=== PATIENT | male | born 1935 | race Caucasian/White ===

== ENCOUNTER 2016-10-20 11:45 | Inpatient (IN) | payer OTHER ==
[2016-10-20] MEDS ORDERED: SODIUM CHLORIDE 500 ML IV STA (13:14)
[2016-10-20] MEDS ORDERED: ACETAMINOPHEN 325 MG TABLET (FP) PO ONE (13:19)
--- NOTE | 2016-10-20 13:20 | PDOC ---
History of Present Illness - History of Present Illness Initial Comments: 10/20/16 16:08 The patient is a 80 year old male, with a significant past medical history of hypertension, asthma, dementia, and arthritis, who presents to the emergency department BIB son-in-law with lower extremity edema and pain for 5 days and vomiting yesterday. He reports the pain in his lower extremities is mild but constant. He states his lower extremities were normal size a week ago, but reports they have increased in size significantly. He states he has been very thirsty and reports drinking large amounts of water. He also reports increased urinary output but denies dysuria. The patients family reports a couple recent episodes of urinary incontinence which is new. The patient states he uses his nebulizer treatments regularly for his asthma. He states he feels short of breath and weak with walking short distances, which he attributes to old age. He endorses orthopnea. He denies chest pain, headache and dizziness. He denies fever, chills, nausea, diarrhea and constipation. He denies dysuria and hematuria. Allergies: NKDA PCP - at [facility] <Fabi Loera - Last Filed: 10/20/16 17:02> <Fco Parmar - Last Filed: 10/21/16 08:19> - General Chief Complaint: Edema Stated Complaint: SWOLLEN LEGS Time Seen by Provider: 10/20/16 12:43 Past History <Fabi Loera - Last Filed: 10/20/16 17:02> - Past Medical History Anemia: Yes Asthma: Yes Dementia: Yes HTN: Yes Hypercholesterolemia: Yes Other medical history: prostate - Psycho/Social/Smoking Cessation Hx Suicidal Ideation: No Smoking History: Never smoked <Fco Parmar - Last Filed: 10/21/16 08:19> - Past Medical History Allergies/Adverse Reactions: Allergies Allergy/AdvReac Type Severity Reaction Status Date / Time No Known Allergies Allergy Verified 10/20/16 11:57 Home Medications: Ambulatory Orders NK [No Known Home Medication] 10/20/16 Review of Systems - Review of Systems Able to Perform ROS?: Yes Comments:: 10/20/16 16:08 CONSTITUTIONAL: No reported: Fever, Chills, Diaphoresis, Generalized Weakness, Malaise, Loss of Appetite HEENT: No reported: Rhinorrhea, Nasal Congestion, Throat Pain, Throat Swelling, Difficulty Swallowing, Mouth Swelling, Ear Pain, Eye Pain, Visual Changes CARDIOVASCULAR: No reported: Chest Pain, Syncope, Palpitations, Irregular Heart Rate, Lightheadedness, Peripheral Edema RESPIRATORY: (+) SOB with Exertion,No reported: Cough, Shortness of Breath, Orthopnea, Wheezing, Stridor, Hemoptysis GASTROINTESTINAL: (+) Vomiting,No reported: Abdominal pain, Abdominal Distension, Nausea, Diarrhea, Constipation, Melena, Hematochezia GENITOURINARY: No reported: Dysuria, Frequency, Urgency, Hesitancy, Flank Pain, Genital Pain MUSCULOSKELETAL: (+) lower extremity edema and pain. No reported: Back pain, Neck Pain SKIN: No reported: Rash, Itching, Pallor HEMEATOLOGIC/IMMUNOLOGIC: No reported: Easy Bleeding, Easy Bruising, Lymphadenopathy, Frequent infections ENDOCRINE: No reported: Unexplained Weight Gain, Unexplained Weight Loss, Heat Intolerance , Cold Intolerance NEUROLOGIC: No reported: Headache, Focal Weakness, Paresthesias, Vertigo, Lightheadedness, Unsteady Gait, Seizure, Mental Status Changes, Incontinence PSYCHIATRIC: No reported: Anxiety, Depression <Fabi Loera - Last Filed: 10/20/16 17:02> *Physical Exam - Vital Signs Last Vital Signs Temp Pulse Resp BP Pulse Ox 100.7 F H 133 H 20 135/66 98 10/20/16 11:57 10/20/16 11:57 10/20/16 11:57 10/20/16 11:57 10/20/16 11:57 - Physical Exam Comments: 10/20/16 16:09 GENERAL: The patient is awake, alert, and fully oriented, Nontoxic - in no acute distress. HEAD: Normocephalic, atraumatic. EYES: extraocular movements intact, sclera anicteric, conjunctiva clear. ENT: Normal voice, Moist mucous membranes. NECK: Normal range of motion, supple LUNGS: (+) Bilateral wheezing. Breath sounds equal, No wheezes, no rhonchi, no rales. HEART: (+) tachycardic rate and normal rhythm, without murmur, rub or gallop. ABDOMEN: Soft, nontender, normoactive bowel sounds. No guarding, no rebound.No CVA tenderness EXTREMITIES: (+) bilateral lower extremity pitting edema up to thighs. Normal range of motion, No clubbing or cyanosis. No cords, erythema, or tenderness. NEUROLOGICAL: No facial assymetry, Normal speech, PSYCH: Normal mood, normal affect. SKIN: Warm, Dry, normal turgor, <ChristinacadenceranjanFabi - Last Filed: 10/20/16 17:02> - Vital Signs Last Vital Signs Temp Pulse Resp BP Pulse Ox 100.7 F H 133 H 20 135/66 98 10/20/16 11:57 10/20/16 11:57 10/20/16 11:57 10/20/16 11:57 10/20/16 11:57 <Fco Parmar - Last Filed: 10/21/16 08:19> Heart Score/ECG Review - ECG Impressions Comment:: 10/20/16 14:19 Twelve-lead EKG was performed and reviewed by me. irregularly irregular rate of [address] changes suggestive of acute ischemia no old ekg for comparison <Fco Parmar - Last Filed: 10/21/16 08:19> ED Treatment Course - LABORATORY CBC & Chemistry Diagram: 10/20/16 13:17 10/20/16 13:17 - ADDITIONAL ORDERS Additional order review: Laboratory Results 10/20/16 10/20/16 10/20/16 15:15 14:48 13:17 VBG pH POC VBG pCO2 POC VBG pO2 Mixed VBG HCO3 Sodium Potassium Chloride Carbon Dioxide Anion Gap BUN Creatinine Creat Clearance w eGFR Random Glucose Calcium Total Bilirubin AST ALT Alkaline Phosphatase Creatine Kinase Troponin I B-Natriuretic Peptide Total Protein Albumin Urine Color Yellow Urine Appearance Clear Urine pH 6.0 Urine Protein Negative Urine Glucose (UA) Negative Urine Ketones Negative Urine Blood 1+ H Urine Nitrite Negative Urine Bilirubin Negative Urine Urobilinogen 4.0 e.u/dl Ur Leukocyte Esterase Negative Urine RBC 17 Urine WBC 2 Stool Occult Blood Negative Crossmatch See Detail 10/20/16 10/20/16 13:17 13:16 VBG pH 7.43 H POC VBG pCO2 37.3 L POC VBG pO2 41.4 Mixed VBG HCO3 24.3 Sodium 138 Potassium 4.0 Chloride 103 Carbon Dioxide 24 Anion Gap 11 BUN 24 H Creatinine 0.9 Creat Clearance w eGFR > 60 Random Glucose 113 H Calcium 8.5 Total Bilirubin 1.1 H AST 15 ALT 14 Alkaline Phosphatase 90 Creatine Kinase 49 Troponin I 0.02 B-Natriuretic Peptide 4708.53 H Total Protein 6.6 Albumin 3.4 Urine Color Urine Appearance Urine pH Urine Protein Urine Glucose (UA) Urine Ketones Urine Blood Urine Nitrite Urine Bilirubin Urine Urobilinogen Ur Leukocyte Esterase Urine RBC Urine WBC Stool Occult Blood Crossmatch 10/20/16 13:17 RBC 1.82 L MCV 99.8 H MCHC 33.8 RDW 14.5 MPV 13.5 H Neutrophils % 74.4 Lymphocytes % 14.1 Monocytes % 10.2 Eosinophils % 0.0 Basophils % 1.3 - RADIOLOGY Radiograph Interpretation: 10/20/16 16:17 CXR was read by Dr. Anthony at 14:56 Impression: No evidence of pneumonia, CHF, pneumothorax, or pleural effusion. - Medications Given in the ED: ED Medications Discontinued Medications Generic Name Dose Route Start Last Admin Trade Name Freq PRN Reason Stop Dose Admin Acetaminophen 650 mg 10/20/16 13:19 10/20/16 13:52 Tylenol - PO 10/20/16 13:20 650 mg ONCE ONE Administration Sodium Chloride 500 mls @ 500 mls/hr 10/20/16 13:14 10/20/16 13:52 Normal Saline - IV 10/20/16 14:13 500 mls/hr ASDIR STA Administration <Fabi Loera - Last Filed: 10/20/16 17:02> - LABORATORY CBC & Chemistry Diagram: 10/20/16 13:17 10/20/16 13:17 - RADIOLOGY Radiology Studies Ordered: Category Date Time Status CHEST X-RAY PORTABLE* [RAD] Stat Radiology 10/20/16 13:14 Ordered <Fco Parmar - Last Filed: 10/21/16 08:19> Medical Decision Making - Medical Decision Making 10/20/16 16:15 Dr. Lopez, cardiology, was paged via phone answering service at 15:55 requesting a call back for doctor to doctor consult. Dr. Turner was called at the office at 16:00 requesting a call back for service admission of this patient. Dr. Lopez was paged overhead requesting a call to [phone]. Dr. Turner was paged a second time at 16:20 requesting a call back for service admission of this patient. Dr. Turner was paged a third time, first time through the phone answering service, at 16:55 requesting a call back for service admission of this patient. I have been advised Dr. Ramon is on-call at this time. Dr. Lopez is in the ED and the patient's case was discussed at 16:55 <Fabi Loera - Last Filed: 10/20/16 17:02> - Medical Decision Making 10/20/16 13:17 80y M presenting with generalized malaise, fatigue, b/l LE edema for 3-4 days, pt did have some vomiting yesterday with abd pain but that has resolved. on exam the pt noted for b/l pitting edema to knees, noted tachy and slightly febrile at triage, b/l wheezing in lungs. differential is broad and includes renal failure, liver failure, chf, pna will give tylenol, gentle fluids A portion of this note was documented by scribe services under my direction. I have reviewed the details of the note, within reason, and agree with the documentation with the following case summary and management plan written by me 10/20/16 14:20 new afib noted on ekg 10/20/16 15:09 pts labs noted for anemia to 6.1, suspect this is the cause of his malaise/ weakness. cxr clear wlil defer a/c for now - awaiting stool guaiac to r/o GIB pts HR improved to 112 from arrival cristóbal llikely need admission 10/20/16 15:55 guaiac negative labs noted pancytopenic -? malignancy awaiting trasnfusion will d/w cardiology regarding rate control vs. transfusion initially 10/20/16 17:[address] lopez agree with deferring a/c due to pancytopenia also agree with holding rate control until pt is transfused in case he is compensating for his anemia pts bp normal here, hr currently reasonable at 115 awaiting call back from dr. mary/yenny for admission will admit to tele CRITICAL CARE DOCUMENTATION: I spent ~35 minutes of Critical Care time, excluding separately billable procedures, involving high complexity decision making to assess, manipulate and support vital system function(s) to treat single or multiple vital organ system failure and/or to prevent further life threatening deterioration of the patient' s condition. 10/20/16 17:27 10/20/16 17:[address] [facility] Case discussed in detail with admitting physician including history, physical exam and ancillary studies. Admitting physician has assumed care for the patient, will follow all pending diagnostics and will complete the evaluation and treatment. <Fco Parmar - Last Filed: 10/21/16 08:19> *DC/Admit/Observation/Transfer - Attestations Scribe Attestion: 10/20/16 16:09 Documentation prepared by Fabi Loera, acting as medical stenographer for Fco Parmar MD, <Fabi Loera - Last Filed: 10/20/16 17:02> - Discharge Dispostion Admit: Yes <Fco Parmar - Last Filed: 10/21/16 08:19> Diagnosis at time of Disposition: Pancytopenia, Leg edema Atrial fibrillation Qualifiers: Atrial fibrillation type: unspecified Qualified Code(s): I48.91 - Unspecified atrial fibrillation - Discharge Dispostion Condition at time of disposition: Guarded
[2016-10-20 13:59] LABS: BASOPHIL 1.3 % (0-2.0); MCH 33.7 pg (25.7-33.7); MCHC 33.8 g/dl (32.0-35.9); MEAN CELL VOLUME 99.8 fl (80-96); MEAN PLT VOLUME 13.5 fl (7.5-11.1); NEUTROPHILS 74.4 % (42.8-82.8); RDW 14.5 % (11.9-15.9); WHITE BLOOD COUNT 3.4 K/mm3 (4.0-10.0)
[2016-10-20 14:03] LABS: VENOUS PH 7.43 (7.32-7.42)
[2016-10-20] MEDS ORDERED: ACETAMINOPHEN 325 MG TABLET (FP) ONE (14:03)
[2016-10-20 14:04] LABS: VENOUS BLOOD GAS HCO3 24.3 meq/L (19-25)
[2016-10-20 14:25] LABS: ALBUMIN 3.4 g/dl (3.4-5.0); ALK PHOS 90 U/L (45-117); ANION GAP 11 (8-16); BILIRUBIN,TOTAL 1.1 mg/dL (0.2-1.0); CALCIUM 8.5 mg/dL (8.5-10.1); CO2 24 mmol/L (21-32); CREATININE 0.9 mg/dL (0.7-1.3); GLUCOSE,RANDOM 113 mg/dL (74-106); SGOT/AST 15 U/L (15-37); SGPT/ALT 14 U/L (12-78); TOT PROT 6.6 g/dl (6.4-8.2)
[2016-10-20 14:27] LABS: TROPONIN I 0.02 ng/ml (0.00-0.05)
[2016-10-20 15:06] LABS: URINE APPEARANCE CLEAR; URINE BILIRUBIN NEGATIVE (NEGATIVE); URINE COLOR YELLOW; URINE GLUCOSE (UA) NEGATIVE (NEGATIVE); URINE KETONE NEGATIVE (NEGATIVE); URINE LEUK ESTERASE NEGATIVE (NEGATIVE); URINE NITRITE NEGATIVE (NEGATIVE); URINE PROTEIN NEGATIVE (NEGATIVE); URINE UROBILINOGEN 4.0 E.U/dl E.U./dl (0.2-1.0)
[2016-10-20 15:11] LABS: URINE BLOOD 1+ (NEGATIVE)
[2016-10-20 15:13] LABS: URINE RBC 17 /hpf (0-3); URINE WBC 2 /hpf (3-5)
[2016-10-20 15:16] LABS: PLATELET COUNT 32 K/MM3 (134-434)
[2016-10-20 15:17] LABS: ACANTHOCYTES 1+; FRAGMENTED CELL 1+; PLATELET COMMENT2 FEW LARGE PLTS; PLATELET ESTIMATE MARKEDLY DECREASED (NORMAL); TEAR DROP CELLS 1+
[2016-10-20] MEDS: dilTIAZem HCL 50 MG/10 ML - 10 ML VIAL IVPUSH ONE ×2 (16:13→17:06)
[2016-10-20 19:02] LABS: INR 1.68 (0.82-1.09); PROTHROMBIN TIME (PATIENT) 18.7 SEC (9.98-11.88)
[2016-10-21 00:50] VITALS: BMI 26.4
[2016-10-21] MEDS ORDERED: ONDANSETRON 4 MG/2 ML VIAL IVPB ONE (01:50)
--- NOTE | 2016-10-21 01:50 | PDOC ---
*Physical Exam - Vital Signs Last Vital Signs Temp Pulse Resp BP Pulse Ox 98.6 F 124 H 20 142/98 100 10/21/16 00:28 10/21/16 00:28 10/21/16 00:28 10/21/16 00:28 10/21/16 00:28 - Physical Exam Comments: 10/21/16 01:49 called to bedside. pt vomiting after eating a turkey sandwich. no abd pain. will administer zofran. will cont to observe. ED Treatment Course - LABORATORY CBC & Chemistry Diagram: 10/20/16 13:17 10/20/16 13:17 - ADDITIONAL ORDERS Additional order review: Laboratory Results 10/20/16 10/20/16 10/20/16 16:00 15:15 14:48 INR VBG pH POC VBG pCO2 POC VBG pO2 Mixed VBG HCO3 Sodium Potassium Chloride Carbon Dioxide Anion Gap BUN Creatinine Creat Clearance w eGFR Random Glucose Lactic Acid Calcium Total Bilirubin AST ALT Alkaline Phosphatase Creatine Kinase Troponin I B-Natriuretic Peptide Total Protein Albumin TSH Urine Color Yellow Urine Appearance Clear Urine pH 6.0 Ur Specific [place] 1.015 Urine Protein Negative Urine Glucose (UA) Negative Urine Ketones Negative Urine Blood 1+ H Urine Nitrite Negative Urine Bilirubin Negative Urine Urobilinogen 4.0 e.u/dl Ur Leukocyte Esterase Negative Urine RBC 17 Urine WBC 2 Stool Occult Blood Negative Blood Type A POSITIVE Antibody Screen Crossmatch 10/20/16 10/20/16 10/20/16 13:20 13:17 13:17 INR VBG pH POC VBG pCO2 POC VBG pO2 Mixed VBG HCO3 Sodium Potassium Chloride Carbon Dioxide Anion Gap BUN Creatinine Creat Clearance w eGFR Random Glucose Lactic Acid 2.2 H* Calcium Total Bilirubin AST ALT Alkaline Phosphatase Creatine Kinase Troponin I B-Natriuretic Peptide Total Protein Albumin TSH 0.54 Urine Color Urine Appearance Urine pH Ur Specific [place] Urine Protein Urine Glucose (UA) Urine Ketones Urine Blood Urine Nitrite Urine Bilirubin Urine Urobilinogen Ur Leukocyte Esterase Urine RBC Urine WBC Stool Occult Blood Blood Type A POSITIVE Antibody Screen Negative Crossmatch See Detail 10/20/16 10/20/16 10/20/16 13:17 13:17 13:16 INR 1.68 H VBG pH 7.43 H POC VBG pCO2 37.3 L POC VBG pO2 41.4 Mixed VBG HCO3 24.3 Sodium 138 Potassium 4.0 Chloride 103 Carbon Dioxide 24 Anion Gap 11 BUN 24 H Creatinine 0.9 Creat Clearance w eGFR > 60 Random Glucose 113 H Lactic Acid Calcium 8.5 Total Bilirubin 1.1 H AST 15 ALT 14 Alkaline Phosphatase 90 Creatine Kinase 49 Troponin I 0.02 B-Natriuretic Peptide 4708.53 H Total Protein 6.6 Albumin 3.4 TSH Urine Color Urine Appearance Urine pH Ur Specific [place] Urine Protein Urine Glucose (UA) Urine Ketones Urine Blood Urine Nitrite Urine Bilirubin Urine Urobilinogen Ur Leukocyte Esterase Urine RBC Urine WBC Stool Occult Blood Blood Type Antibody Screen Crossmatch 10/20/16 13:17 RBC 1.82 L MCV 99.8 H MCHC 33.8 RDW 14.5 MPV 13.5 H Neutrophils % 74.4 Lymphocytes % 14.1 Monocytes % 10.2 Eosinophils % 0.0 Basophils % 1.3 - Medications Given in the ED: ED Medications Discontinued Medications Generic Name Dose Route Start Last Admin Trade Name Freq PRN Reason Stop Dose Admin Acetaminophen 650 mg 10/20/16 13:19 10/20/16 13:52 Tylenol - PO 10/20/16 13:20 650 mg ONCE ONE Administration Diltiazem HCl 10 mg 10/20/16 15:55 10/20/16 17:06 Cardizem Injection - IVPUSH 10/20/16 15:56 Not Given ONCE ONE Sodium Chloride 500 mls @ 500 mls/hr 10/20/16 13:14 10/20/16 13:52 Normal Saline - IV 10/20/16 14:13 500 mls/hr ASDIR STA Administration *DC/Admit/Observation/Transfer Diagnosis at time of Disposition: Pancytopenia, Leg edema Atrial fibrillation Qualifiers: Atrial fibrillation type: unspecified Qualified Code(s): I48.91 - Unspecified atrial fibrillation - Discharge Dispostion Condition at time of disposition: Guarded
[2016-10-21] MEDS ORDERED: ONDANSETRON 4 MG/2 ML VIAL ONE (01:56)
[2016-10-21] MEDS ORDERED: ALBUTEROL SO4 2.5/IPRATROPIUM 0.5 INH SOL 3 ML VIAL.NEB. NEB PRN (01:58)
[2016-10-21] MEDS ORDERED: ONDANSETRON 4 MG/2 ML VIAL IVPB PRN (03:43)
[2016-10-21] MEDS ORDERED: PANTOPRAZOLE SODIUM 40 MG/100 ML PRE-DOCKED IVPB ONE (03:45)
[2016-10-21] MEDS ORDERED: PANTOPRAZOLE SODIUM 40 MG/100 ML PRE-DOCKED IVPB SCH (03:45)
[2016-10-21] MEDS: ACETAMINOPHEN 325 MG TABLET (FP) PO PRN ×2 (04:15→22:31)
[2016-10-21] MEDS: morphine CARPU-JECT 2 MG/1 ML DISP.SYRIN IVPUSH PRN ×3 (04:15→23:22)
[2016-10-21 04:56] LABS: TROPONIN I < 0.02 ng/ml (0.00-0.05)
[2016-10-21] MEDS ORDERED: morphine CARPU-JECT 2 MG/1 ML DISP.SYRIN IVPUSH ONE (05:30)
[2016-10-21] MEDS ORDERED: LEVOFLOXACIN 500 MG IVPB 100 ML IVPB SCH (06:45)
[2016-10-21 08:02] LABS: THYROID STIMULATING HORMONE 0.78 uIU/ml (0.358-3.74)
[2016-10-21 09:15] LABS: ALBUMIN 3.3 g/dl (3.4-5.0); ANION GAP 13 (8-16); CALCIUM 8.5 mg/dL (8.5-10.1); CO2 22 mmol/L (21-32); GLUCOSE,RANDOM 158 mg/dL (74-106)
[2016-10-21 09:17] LABS: CREATININE 0.8 mg/dL (0.7-1.3); SGOT/AST 14 U/L (15-37); SGPT/ALT 12 U/L (12-78)
[2016-10-21 09:20] LABS: ALK PHOS 88 U/L (45-117); BILIRUBIN,TOTAL 2.9 mg/dL (0.2-1.0); TOT PROT 6.5 g/dl (6.4-8.2)
[2016-10-21 09:35] LABS: MCH 32.6 pg (25.7-33.7); MCHC 33.5 g/dl (32.0-35.9); MEAN CELL VOLUME 97.4 fl (80-96); MEAN PLT VOLUME 11.2 fl (7.5-11.1); RDW 17.1 % (11.9-15.9); WHITE BLOOD COUNT 7.3 K/mm3 (4.0-10.0)
[2016-10-21] MEDS: HEPARIN NA (PORCINE) 5,000 UNITS/ML 1ML VIAL SQ SCH ×2 (09:35→23:09)
[2016-10-21] MEDS: PANTOPRAZOLE 40 MG TABLET (FP) PO SCH (09:35)
--- NOTE | 2016-10-21 09:44 | EKG ---
Test Reason : Blood Pressure : / mmHG Vent. Rate : 112 BPM Atrial Rate : 138 BPM P-R Int : 000 ms QRS Dur : 126 ms QT Int : 350 ms P-R-T Axes : 000 -04 005 degrees QTc Int : 477 ms ATRIAL FIBRILLATION WITH RAPID VENTRICULAR RESPONSE RIGHT BUNDLE BRANCH BLOCK ABNORMAL ECG NO PREVIOUS ECGS AVAILABLE Confirmed by ROSA LYNCH MD ([id number]) on 10/21/2016 9:44:11 AM Referred By: Confirmed By:ROSA LYNCH MD
[2016-10-21 10:04] LABS: ALBUMIN 3.3 g/dl (3.4-5.0); ANION GAP 12 (8-16); BILIRUBIN,TOTAL 2.5 mg/dL (0.2-1.0); CALCIUM 8.4 mg/dL (8.5-10.1); CO2 24 mmol/L (21-32); CREATININE 0.9 mg/dL (0.7-1.3); GLUCOSE,RANDOM 190 mg/dL (74-106); SGOT/AST 18 U/L (15-37); SGPT/ALT 12 U/L (12-78); TOT PROT 6.8 g/dl (6.4-8.2)
[2016-10-21 10:05] LABS: ALK PHOS 91 U/L (45-117)
[2016-10-21 11:55] LABS: PLATELET COUNT 44 K/MM3 (134-434)
[2016-10-21 11:57] LABS: PLATELET COMMENT2 FEW GIANT PLTS; PLATELET ESTIMATE DECREASED (NORMAL)
--- NOTE | 2016-10-21 12:24 | CON.CARD ---
Cardiology Consult (text) - Consultation Consultation Note: cc: generalized weakness hpi: 80 m hx htn, asthma, dementia, here with generalized weakness. No cp, sob , palps, dizzy,loc, pnd, orthopnea. Mild le edema bl. No known hx hrt dz. Found to have pancytopenia, fevers. Also with new afib so cardio eval requested. pmh: per hpi psh: nc social: no tob fam: no premature cad, scd ros: per hpi; no cough, curiel, vision changes, gib,hematuria, dysuria, n/v/d meds: Home Medications Medication Instructions Recorded NK [No Known Home Medication] 10/20/16 pe: Vital Signs Period Temp Pulse Resp BP Sys/Ortega Pulse Ox Last 24 Hr 98.3 F-101.9 F 112-130 18-24 118-164/73-100 96-100 nad no jvd tachy, irreg, s1s2 no mrg cta bl nl eff awake alert answers simple questions appropriately no jaundice diaphoresis trace le edema bl, no c/c abd nt nd pos bs pos dp pt no carotid bruits Laboratory Last Values WBC 7.3 K/mm3 (4.0-10.0) D 10/21/16 09:10 RBC 2.74 M/mm3 (4.00-5.60) L D 10/21/16 09:10 Hgb 8.9 GM/dL (11.7-16.9) L D 10/21/16 09:10 Hct 26.6 % (35.4-49) L D 10/21/16 09:10 MCV 97.4 fl (80-96) H 10/21/16 09:10 MCHC 33.5 g/dl (32.0-35.9) 10/21/16 09:10 RDW 17.1 % (11.9-15.9) H D 10/21/16 09:10 Plt Count 44 K/MM3 (134-434) L D 10/21/16 09:10 MPV 11.2 fl (7.5-11.1) H D 10/21/16 09:10 Neutrophils % 73.0 % (42.8-82.8) 10/21/16 09:10 Lymphocytes % 18.0 % (8-40) D 10/21/16 09:10 Monocytes % 7.0 % (3.8-10.2) 10/21/16 09:10 Eosinophils % 0.0 % (0-4.5) 10/20/16 13:17 Basophils % 2.0 % (0-2.0) 10/21/16 09:10 Platelet Estimate Decreased (NORMAL) 10/21/16 09:10 Platelet Comment Few large plts 10/21/16 09:10 Platelet Comment Few giant plts 10/21/16 09:10 Tear Drop Cells 1+ 10/20/16 13:17 Acanthocytes (Spur) 1+ 10/20/16 13:17 Fragmented RBCs 1+ 10/20/16 13:17 Morphology Comment Slide scanned 10/20/16 13:17 INR 1.68 (0.82-1.09) H 10/20/16 13:17 VBG pH 7.43 (7.32-7.42) H 10/20/16 13:16 POC VBG pCO2 37.3 mmHg (38-52) L 10/20/16 13:16 POC VBG pO2 41.4 mmHg (28-48) 10/20/16 13:16 Mixed VBG HCO3 24.3 meq/L (19-25) 10/20/16 13:16 Sodium 140 mmol/L (136-145) 10/21/16 09:10 Potassium 3.8 mmol/L (3.5-5.1) 10/21/16 09:10 Chloride 104 mmol/L (98-107) 10/21/16 09:10 Carbon Dioxide 24 mmol/L (21-32) 10/21/16 09:10 Anion Gap 12 (8-16) 10/21/16 09:10 BUN 26 mg/dL (7-18) H 10/21/16 09:10 Creatinine 0.9 mg/dL (0.7-1.3) 10/21/16 09:10 Creat Clearance w eGFR > 60 (>60) 10/21/16 09:10 Random Glucose 190 mg/dL (74-106) H D 10/21/16 09:10 Hemoglobin A1c % 5.7 % (4.8-6.0) 10/21/16 05:35 Lactic Acid 1.3 mmol/L (0.4-2.0) 10/20/16 18:44 Calcium 8.4 mg/dL (8.5-10.1) L 10/21/16 09:10 Total Bilirubin 2.5 mg/dL (0.2-1.0) H 10/21/16 09:10 AST 18 U/L (15-37) D 10/21/16 09:10 ALT 12 U/L (12-78) 10/21/16 09:10 Alkaline Phosphatase 91 U/L (45-117) 10/21/16 09:10 Creatine Kinase 43 IU/L (39-308) 10/21/16 04:20 Troponin I < 0.02 ng/ml (0.00-0.05) 10/21/16 04:20 B-Natriuretic Peptide 4708.53 pg/ml (5-450) H 10/20/16 13:17 Total Protein 6.8 g/dl (6.4-8.2) 10/21/16 09:10 Albumin 3.3 g/dl (3.4-5.0) L 10/21/16 09:10 TSH 0.78 uIU/ml (0.358-3.74) D 10/21/16 05:35 Urine Color Yellow 10/20/16 14:48 Urine Appearance Clear 10/20/16 14:48 Urine pH 6.0 (5.0-8.0) 10/20/16 14:48 Ur Specific [place] 1.015 (1.005-1.025) 10/20/16 14:48 Urine Protein Negative (NEGATIVE) 10/20/16 14:48 Urine Glucose (UA) Negative (NEGATIVE) 10/20/16 14:48 Urine Ketones Negative (NEGATIVE) 10/20/16 14:48 Urine Blood 1+ (NEGATIVE) H 10/20/16 14:48 Urine Nitrite Negative (NEGATIVE) 10/20/16 14:48 Urine Bilirubin Negative (NEGATIVE) 10/20/16 14:48 Urine Urobilinogen 4.0 e.u/dl E.U./dl (0.2-1.0) 10/20/16 14:48 Ur Leukocyte Esterase Negative (NEGATIVE) 10/20/16 14:48 Urine RBC 17 /hpf (0-3) 10/20/16 14:48 Urine WBC 2 /hpf (3-5) 10/20/16 14:48 Stool Occult Blood Negative (NEGATIVE) 10/20/16 15:15 Blood Type A POSITIVE 10/20/16 16:00 Antibody Screen Negative 10/20/16 13:17 Crossmatch See Detail 10/20/16 13:17 ecg 10/20/16: afib, 112, nl qtc, no ischemic changes cxr: clear lungs tele: afib 120s a/p: 80 m hx htn, asthma, dementia, here with generalized weakness. new onset afib: -rvr at times so will add toprol 50 bid to start, monitor on tele -tsh wnl -echo pending -no signs acs -chadsvasc score warrants ac but currently with severe anemia and thrombocytopenia so will not start at this time. Will have to determine [facility] candidacy for ac based on clinical course, functional status. htn: -elevated, will add toprol as above weakness, anemia: -has fevers, pancytopenia, likely cause of acute sxs -plans per pmd, heme
[2016-10-21] MEDS: METOPROLOL SUCCINATE 50 MG TAB.SR.24H (FP) PO SCH ×2 (13:47→22:35)
--- NOTE | 2016-10-21 15:30 | CONSULT ---
Consult - text type - Consultation Consultation Note: The patient is a 80 year old male, with a significant past medical history of hypertension, asthma, dementia, and arthritis, who presents with lower extremity edema and pain for 5 days and vomiting yesterday. He reports the pain in his lower extremities is mild but constant. He also reports increased urinary output but denies dysuria. The patients family reports a couple recent episodes of urinary incontinence which is new. He states he feels short of breath and weak with walking short distances, which he attributes to old age. He denies chest pain, headache and dizziness. He denies fever, chills, nausea, diarrhea and constipation. He denies dysuria and hematuria. Allergies: NKDA PCP - at [facility] - Past Medical History Anemia: Yes Asthma: Yes Dementia: Yes HTN: Yes Hypercholesterolemia: Yes Other medical history: prostate - Psycho/Social/Smoking Cessation Hx Smoking History: Never smoked Allergies/Adverse Reactions: Allergies Allergy/AdvReac Type Severity Reaction Status Date / Time No Known Allergies Allergy Verified 10/20/16 11:57 Home Medications: Ambulatory Orders NK [No Known Home Medication] 10/20/16 Current Medications Generic Name Dose Route Start Last Admin Trade Name Freq PRN Reason Stop Dose Admin Acetaminophen 650 mg 10/21/16 05:33 10/21/16 04:15 Tylenol - PO 650 mg Q6H PRN Administration FEVER OR PAIN Albuterol/Ipratropium 1 amp 10/21/16 01:58 Duoneb - NEB Q6H PRN SHORTNESS OF BREATH Heparin Sodium (Porcine) 5,000 unit 10/21/16 10:00 10/21/16 09:35 Heparin - SQ 5,000 unit BID KVNG Administration Levofloxacin 100 mls @ 100 mls/hr 10/21/16 06:45 10/21/16 06:57 Levaquin 500 Mg Premixed Ivpb - IVPB 100 mls/hr DAILY KVNG Administration Metoprolol Succinate 50 mg 10/21/16 12:30 10/21/16 13:47 Toprol Xl - PO 50 mg BID KVNG Administration Morphine Sulfate 2 mg 10/21/16 03:43 10/21/16 13:47 Morphine Injection - IVPUSH 2 mg Q6H PRN Administration PAIN Ondansetron HCl 4 mg 10/21/16 03:43 Zofran Injection IVPB Q6H PRN NAUSEA AND/OR VOMITING Pantoprazole Sodium 40 mg 10/21/16 10:00 10/21/16 09:35 Protonix - PO 40 mg DAILY KVNG Administration Last Vital Signs Temp Pulse Resp BP Pulse Ox 97.4 F L 86 20 121/56 99 10/21/16 14:56 10/21/16 14:56 10/21/16 14:56 10/21/16 14:56 10/21/16 09:00 GENERAL: The patient is awake, alert, and fully oriented, Nontoxic - in no acute distress. HEAD: Normocephalic, atraumatic. NECK: Normal range of motion, supple LUNGS: (+) Bilateral wheezing. Breath sounds equal, No wheezes, no rhonchi, no rales. HEART: (+) tachycardic rate and normal rhythm, without murmur, rub or gallop. ABDOMEN: Soft, nontender, normoactive bowel sounds. No guarding, no rebound.No CVA tenderness EXTREMITIES: (+) bilateral lower extremity pitting edema up to thighs. Normal range of motion, No clubbing or cyanosis. No cords, erythema, or tenderness. NEUROLOGICAL: No facial assymetry, Normal speech, Abnormal Lab Results 10/20/16 10/20/16 10/20/16 13:17 13:17 13:20 RBC Hgb Hct MCV RDW Plt Count MPV INR 1.68 H BUN Random Glucose Lactic Acid 2.2 H* Calcium Total Bilirubin AST Albumin Urine Blood Crossmatch See Detail 10/20/16 10/21/16 10/21/16 14:48 05:35 09:10 RBC 2.74 L D Hgb 8.9 L D Hct 26.6 L D MCV 97.4 H RDW 17.1 H D Plt Count 44 L D MPV 11.2 H D INR BUN 24 H Random Glucose 158 H D Lactic Acid Calcium Total Bilirubin 2.9 H D AST 14 L Albumin 3.3 L Urine Blood 1+ H Crossmatch 10/21/16 09:10 RBC Hgb Hct MCV RDW Plt Count MPV INR BUN 26 H Random Glucose 190 H D Lactic Acid Calcium 8.4 L Total Bilirubin 2.5 H AST Albumin 3.3 L Urine Blood Crossmatch A/P 80 y/o patient with htN, DEMENTIA, ARTHRITIS, Comes in with leg pains, worsening weakness, exertional dyspnea. Aslo with new onset afib. Pancytopenia: macrocytic anemia, thrombocytopenia, nl differentialof WBC Check B12/folate/fT4 TSH --nl check U/S to r/o liver disease chek protein studies check flowcytometry macrocytic anemia--r/o B12/folate deficiency/liver disease/MDS check flow r/o hemolysis f/u cultures --r/o urinary infection check PT/PTT/fibrinogen
--- NOTE | 2016-10-21 16:39 | HP ---
Admitting History and Physical - Admission History of Present Illness: The patient is a 80 year old male, with a significant past medical history of hypertension, asthma, dementia, and arthritis, who presents with lower extremity edema and pain for 5 days and vomiting yesterday. He reports the pain in his lower extremities is mild but constant. He also reports increased urinary output but denies dysuria. The patients family reports a couple recent episodes of urinary incontinence which is new. He states he feels short of breath and weak with walking short distances, which he attributes to old age. He denies chest pain, headache and dizziness. He denies fever, chills, nausea, diarrhea and constipation. He denies dysuria and hematuria. 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 Cardiovascular: Yes: HTN Pulmonary: Yes: Asthma Musculoskeletal: Yes: Osteoarthritis - Smoking History Smoking history: Never smoked - Alcohol/Substance Use Hx Alcohol Use: No Home Medications - Allergies Allergies/Adverse Reactions: Allergies Allergy/AdvReac Type Severity Reaction Status Date / Time No Known Allergies Allergy Verified 10/20/16 11:57 - Home Medications Home Medications: Ambulatory Orders NK [No Known Home Medication] 10/20/16 Family Disease History - Family Disease History Family History: Unremarkable Review of Systems Unable to obtain ROS, reason: Dementia Physical Examination Vital Signs: Vital Signs Temperature 97.4 F L 10/21/16 14:56 Pulse Rate 86 10/21/16 14:56 Respiratory Rate 20 10/21/16 14:56 Blood Pressure 121/56 10/21/16 14:56 O2 Sat by Pulse Oximetry (%) 99 10/21/16 09:00 Constitutional: Yes: Well Nourished Eyes: Yes: WNL HENT: Yes: WNL Neck: Yes: WNL Cardiovascular: Yes: Pulse Irregular Respiratory: Yes: WNL, Regular, CTA Bilaterally Gastrointestinal: Yes: WNL, Normal Bowel Sounds Musculoskeletal: Yes: WNL Extremities: Yes: WNL Edema: No Neurological: Yes: WNL, Alert, Oriented ...Motor Strength: WNL Labs: CBC, BMP 10/21/16 09:10 10/21/16 09:10 Problem List - Problems (1) Atrial fibrillation Code(s): I48.91 - UNSPECIFIED ATRIAL FIBRILLATION Qualifiers: Atrial fibrillation type: unspecified Qualified Code(s): I48.91 - Unspecified atrial fibrillation (2) Fever Code(s): R50.9 - FEVER, UNSPECIFIED (3) HTN (hypertension) Code(s): I10 - ESSENTIAL (PRIMARY) HYPERTENSION
[2016-10-21] MEDS ORDERED: DEXTROSE 5%-0.45% SALINE 1,000 ML IV SCH (23:31)
--- NOTE | 2016-10-22 07:50 | PN ---
Progress Note, Physician Chief Complaint: ID This 80 year old male originally frm [place] asked to see for fever Currently new onset atrial fibrillation Fever 102 Robins inserted for no urine output - Current Medication List Current Medications: Active Medications Acetaminophen (Tylenol -) 650 mg PO Q6H PRN PRN Reason: FEVER OR PAIN Last Admin: 10/21/16 22:31 Dose: 650 mg Albuterol/Ipratropium (Duoneb -) 1 amp NEB Q6H PRN PRN Reason: SHORTNESS OF BREATH Heparin Sodium (Porcine) (Heparin -) 5,000 unit SQ BID [facility] Last Admin: 10/21/16 23:09 Dose: Not Given Levofloxacin (Levaquin 500 Mg Premixed Ivpb -) 100 mls @ 100 mls/hr IVPB DAILY [facility] Last Admin: 10/21/16 06:57 Dose: 100 mls/hr Dextrose/Sodium Chloride (D5-1/2ns -) 1,000 mls @ 25 mls/hr IV ASDIR [facility] Last Admin: 10/22/16 00:00 Dose: 25 mls/hr Metoprolol Succinate (Toprol Xl -) 50 mg PO BID [facility] Last Admin: 10/21/16 22:35 Dose: 50 mg Morphine Sulfate (Morphine Injection -) 2 mg IVPUSH Q6H PRN PRN Reason: PAIN Last Admin: 10/21/16 23:22 Dose: 2 mg Ondansetron HCl (Zofran Injection) 4 mg IVPB Q6H PRN PRN Reason: NAUSEA AND/OR VOMITING Last Admin: 10/21/16 23:49 Dose: 4 mg Pantoprazole Sodium (Protonix -) 40 mg PO DAILY [facility] Last Admin: 10/21/16 09:35 Dose: 40 mg - Objective Vital Signs: Vital Signs Temperature 98 F 10/22/16 05:51 Pulse Rate 123 H 10/22/16 05:51 Respiratory Rate 20 10/22/16 05:51 Blood Pressure 95/62 10/22/16 05:51 O2 Sat by Pulse Oximetry (%) 99 10/21/16 21:00 Constitutional: Yes: Well Nourished, No Distress HENT: Yes: WNL, Atraumatic Neck: Yes: WNL, Supple Respiratory: Yes: WNL, Regular, CTA Bilaterally. No: Rales Gastrointestinal: Yes: WNL, Normal Bowel Sounds, Soft. No: Tenderness, Tenderness, Epigastrium Labs: INR, PTT INR 1.68 (0.82-1.09) H 10/20/16 13:17 Problem List - Problems (1) Atrial fibrillation Code(s): I48.91 - UNSPECIFIED ATRIAL FIBRILLATION Qualifiers: Atrial fibrillation type: unspecified Qualified Code(s): I48.91 - Unspecified atrial fibrillation (2) Fever Code(s): R50.9 - FEVER, UNSPECIFIED (3) UTI (urinary tract infection) Code(s): N39.0 - URINARY TRACT INFECTION, SITE NOT SPECIFIED Assessment/Plan Microbiology 10/20/16 16:00 Blood - Peripheral Venous Blood Culture - Preliminary NO GROWTH OBTAINED AFTER 24 HOURS, INCUBATION TO CONTINUE FOR 4 DAYS. 10/20/16 13:20 Blood - Peripheral Venous Blood Culture - Preliminary NO GROWTH OBTAINED AFTER 24 HOURS, INCUBATION TO CONTINUE FOR 4 DAYS. Laboratory Tests 10/20/16 10/20/16 10/20/16 13:17 14:48 18:44 WBC 3.4 L Hgb 6.1 L* MCV 99.8 H Plt Count 32 L* Random Glucose Lactic Acid 1.3 Total Bilirubin Ur Leukocyte Esterase Negative Urine RBC 17 Urine WBC 2 10/21/16 09:10 WBC Hgb MCV Plt Count Random Glucose 190 H D Lactic Acid Total Bilirubin 2.5 H Ur Leukocyte Esterase Urine RBC Urine WBC Assessment Fever possible prostatitis Leukopenia possible infection related Atrial fibrillation Severe anemia post transfusion Elevated MCV PLan Continue Ceftriaxone pending c/s B12 Folate Heme and GI evaluation Lyla COLEMAN
[2016-10-22 07:56] LABS: MCH 33.2 pg (25.7-33.7); MCHC 34.4 g/dl (32.0-35.9); MEAN CELL VOLUME 96.5 fl (80-96); MEAN PLT VOLUME 10.8 fl (7.5-11.1); RDW 16.9 % (11.9-15.9)
[2016-10-22 08:07] LABS: INR 2.39 (0.82-1.09); PROTHROMBIN TIME (PATIENT) 26.8 SEC (9.98-11.88)
[2016-10-22 08:09] LABS: ACTIVATED PTT 34.2 SECONDS (26.9-34.4)
[2016-10-22 08:11] LABS: WHITE BLOOD COUNT 7.2 K/mm3 (4.0-10.0)
[2016-10-22 08:25] LABS: ANION GAP 14 (8-16); CALCIUM 8.1 mg/dL (8.5-10.1); CO2 22 mmol/L (21-32); GLUCOSE,RANDOM 96 mg/dL (74-106)
[2016-10-22 08:30] LABS: FERRITIN 608.331 ng/ml (16.4-293.9); FREE T4 0.99 ng/dl (0.76-1.16)
[2016-10-22 08:31] LABS: C-REACTIVE PROTEIN 9.9 MG/DL (0.00-0.3)
[2016-10-22 08:37] LABS: ALK PHOS 80 U/L (45-117); BILIRUBIN,TOTAL 1.4 mg/dL (0.2-1.0); CREATININE 1.7 mg/dL (0.7-1.3); SGOT/AST 194 U/L (15-37); SGPT/ALT 86 U/L (12-78); THYROID STIMULATING HORMONE 1.05 uIU/ml (0.358-3.74); TOT PROT 6.4 g/dl (6.4-8.2)
--- NOTE | 2016-10-22 09:24 | CONS ---
DATE OF CONSULTATION: HISTORY: This is an 80-year-old [place]ag[place] man originally from [place], [place] living in the [facility] for many years whom I am asked to see for evaluation of chills and fever. He is a poor historian with a history of hypertension, dementia, asthma, and arthritis. He had been experiencing pain in the lower extremities for several days with vomiting. He also noted abdominal discomfort and burning on urination. He was noted to be in atrial fibrillation. According to the family, he has been incontinent recently, which is new. He has been weak with shortness of breath on walking short distances. He denied any chest pain or palpitations. He was noted to be severely anemic requiring blood transfusions after admission. His temperature was noted to be 102. He denied any cough, rash, or recent travel. He lives in the [facility] for many years. 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 PAST MEDICAL HISTORY: As noted above. MEDICATIONS: At home metoprolol, Protonix. ALLERGIES: None known. SOCIAL HISTORY: Never smoked. No history of alcohol. FAMILY HISTORY: The patient cannot provide. REVIEW OF SYSTEMS: Respiratory: No cough. Positive exertional shortness of breath. No hemoptysis. Cardiac: No chest pain, palpitations. New onset atrial fibrillation here. Gastrointestinal: Lower abdominal discomfort. No diarrhea. Positive vomiting. No blood per rectum or hematemesis. Genitourinary: Positive dysuria. No hematuria. Recent urinary incontinence noted. PHYSICAL EXAMINATION: Vital Signs: Temperature 100.2, pulse 86, respirations 20, blood pressure 120/56, oximetry 99%. General: He is alert and in no acute distress. HEENT: Head normocephalic and atraumatic. Neck: Supple without lymphadenopathy. Lungs: Coarse rhonchi. No wheezing or rales. Heart: Tachycardic. No murmur, gallop, rub. Abdomen: Soft and nontender. Normoactive bowel sounds. No guarding, rebound. No hepatosplenomegaly. Extremities: Bilateral pitting edema up to the thighs. The white count was 3.5, hemoglobin 6.1, platelets 32,000 with 74% polys, 14 lymphocytes, 10 monocytes. INR 1.68, BUN 24, creatinine 0.8, glucose 158, bilirubin 2.9, AST 14, lactic acid 1.3. Urinalysis with 17 RBCs, 2 WBCs. Two sets of blood cultures dated October 20 currently no growth. Urine culture pending via Robins catheter. Chest x-ray reviewed shows no evidence of heart failure or pneumonia. ASSESSMENT: An 80-year-old male who presents with atrial fibrillation, severe anemia found to have fever to 102 with chills, most likely urinary tract infection, possible acute prostatitis. He is noted to be severely anemic with elevated MCV and has been seen by Dr. Manriquez with hematology workup in progress. He is also noted to be transiently leukopenic, which may be on the basis of infection. He has been seen by Cardiology for atrial fibrillation. PLAN: Continue him on ceftriaxone 2 g IV daily pending final blood and urine cultures with hematology and GI workup including B12 and folate levels ordered for further evaluation of anemia. PATSY ABBASI M.D. [id number]
[2016-10-22 09:41] LABS: PLATELET ESTIMATE DECREASED (NORMAL)
[2016-10-22 09:42] LABS: ANISOCYTOSIS 1+; FRAGMENTED CELL 1+; PLATELET COMMENT2 MOD LARGE PLTS; PLATELET COMMENT3 FEW GIANT PLTS
[2016-10-22 09:43] LABS: ACANTHOCYTES 1+; BURR CELLS 1+
[2016-10-22 09:46] LABS: TROPONIN I 3.66 ng/ml (0.00-0.05)
[2016-10-22] MEDS ORDERED: METOPROLOL SUCCINATE 25 MG TAB.SR.24H (FP) PO SCH (09:53)
[2016-10-22] MEDS ORDERED: CEFTRIAXONE 100 ML IVPB SCH (10:00)
[2016-10-22] MEDS ORDERED: LEVOFLOXACIN 500 MG IVPB 100 ML IVPB SCH (10:00)
[2016-10-22] MEDS: PANTOPRAZOLE 40 MG TABLET (FP) PO SCH (10:05)
[2016-10-22] MEDS: HEPARIN NA (PORCINE) 5,000 UNITS/ML 1ML VIAL SQ SCH (10:06)
--- NOTE | 2016-10-22 12:11 | PN ---
Progress Note (short form) - Note Progress Note: cc: afib, +trops s: no cp sob palps dizzy loc. this AM has been hypotensive and febrile. no cigs o: Vital Signs Temp 97.5 F L 10/22/16 09:00 Pulse 122 H 10/22/16 09:00 Resp 20 10/22/16 09:00 BP 96/58 10/22/16 09:00 Pulse Ox 97 10/22/16 09:00 Intake & Output 10/21/16 10/22/16 10/22/16 23:59 11:59 23:59 Intake Total 300 600 Output Total 30 110 Balance 270 490 Intake: IV 500 D5-1/2Ns - 1,000 ml @ 25 500 mls/hr IV ASDIR [facility] Rx#: [id number] IVPB 100 Oral 300 Output: Urine 30 110 Void 30 30 Robins 80 Other: Voiding Method Urinal Indwelling Catheter nad no jvd tachy, irreg, s1s2 no mrg cta bl nl eff awake alert answers simple questions appropriately no jaundice diaphoresis trace le edema bl, no c/c abd nt nd pos bs pos dp pt no carotid bruits Current Medications Generic Name Dose Route Start Last Admin Trade Name Freq PRN Reason Stop Dose Admin Acetaminophen 650 mg 10/21/16 05:33 10/21/16 22:31 Tylenol - PO 650 mg Q6H PRN Administration FEVER OR PAIN Albuterol/Ipratropium 1 amp 10/21/16 01:58 Duoneb - NEB Q6H PRN SHORTNESS OF BREATH Heparin Sodium (Porcine) 5,000 unit 10/21/16 10:00 10/22/16 10:06 Heparin - SQ 5,000 unit BID [facility] Administration Dextrose/Sodium Chloride 1,000 mls @ 25 mls/hr 10/21/16 23:31 10/22/16 00:00 D5-1/2ns - IV 25 mls/hr ASDIR [facility] Administration Ceftriaxone Sodium 100 mls @ 200 mls/hr 10/22/16 10:00 10/22/16 10:05 Rocephin 2gm Ivpb (Pre-Docked) IVPB 200 mls/hr DAILY [facility] Administration Metoprolol Succinate 25 mg 10/22/16 09:53 Toprol Xl - PO BID [facility]NG Morphine Sulfate 2 mg 10/21/16 03:43 10/21/16 23:22 Morphine Injection - IVPUSH 2 mg Q6H PRN Administration PAIN Ondansetron HCl 4 mg 10/21/16 03:43 10/21/16 23:49 Zofran Injection IVPB 4 mg Q6H PRN Administration NAUSEA AND/OR VOMITING Pantoprazole Sodium 40 mg 10/21/16 10:00 10/22/16 10:05 Protonix - PO 40 mg DAILY [facility] Administration Laboratory Last Values WBC 7.2 K/mm3 (4.0-10.0) 10/22/16 05:35 RBC 2.44 M/mm3 (4.00-5.60) L 10/22/16 05:35 Hgb 8.1 GM/dL (11.7-16.9) L 10/22/16 05:35 Hct 23.6 % (35.4-49) L 10/22/16 05:35 MCV 96.5 fl (80-96) H 10/22/16 05:35 MCHC 34.4 g/dl (32.0-35.9) 10/22/16 05:35 RDW 16.9 % (11.9-15.9) H 10/22/16 05:35 Plt Count No Result Required. 10/22/16 05:35 MPV 10.8 fl (7.5-11.1) 10/22/16 05:35 Neutrophils % 85.0 % (42.8-82.8) H 10/22/16 05:35 Lymphocytes % 10.0 % (8-40) D 10/22/16 05:35 Monocytes % 5.0 % (3.8-10.2) 10/22/16 05:35 Eosinophils % 0.0 % (0-4.5) 10/20/16 13:17 Basophils % 2.0 % (0-2.0) 10/21/16 09:10 Nucleated RBCs 3 % (0-0) H 10/22/16 05:35 Differential Comment Manual diff done 10/22/16 05:35 Platelet Estimate Decreased (NORMAL) 10/22/16 05:35 Platelet Comment Slt plt clumping 10/22/16 05:35 Platelet Comment Mod large plts 10/22/16 05:35 Anisocytosis 1+ 10/22/16 05:35 Tear Drop Cells 1+ 10/20/16 13:17 Juan Cells 1+ 10/22/16 05:35 Acanthocytes (Spur) 1+ 10/22/16 05:35 Fragmented RBCs 1+ 10/22/16 05:35 Morphology Comment Slide scanned 10/20/16 13:17 ESR 55 mm/hr (0-20) H 10/22/16 05:35 INR 2.39 (0.82-1.09) H D 10/22/16 05:35 PTT (Actin FS) 34.2 SECONDS (26.9-34.4) 10/22/16 05:35 Fibrinogen 397.0 mg/dL (238-498) 10/22/16 05:35 VBG pH 7.43 (7.32-7.42) H 10/20/16 13:16 POC VBG pCO2 37.3 mmHg (38-52) L 10/20/16 13:16 POC VBG pO2 41.4 mmHg (28-48) 10/20/16 13:16 Mixed VBG HCO3 24.3 meq/L (19-25) 10/20/16 13:16 Sodium 137 mmol/L (136-145) 10/22/16 05:35 Potassium 4.6 mmol/L (3.5-5.1) D 10/22/16 05:35 Chloride 101 mmol/L (98-107) 10/22/16 05:35 Carbon Dioxide 22 mmol/L (21-32) 10/22/16 05:35 Anion Gap 14 (8-16) 10/22/16 05:35 BUN 46 mg/dL (7-18) H D 10/22/16 05:35 Creatinine 1.7 mg/dL (0.7-1.3) H D 10/22/16 05:35 Creat Clearance w eGFR 38.97 (>60) 10/22/16 05:35 Random Glucose 96 mg/dL (74-106) D 10/22/16 05:35 Hemoglobin A1c % 5.7 % (4.8-6.0) 10/21/16 05:35 Lactic Acid 1.3 mmol/L (0.4-2.0) 10/20/16 18:44 Calcium 8.1 mg/dL (8.5-10.1) L 10/22/16 05:35 Ferritin 608.331 ng/ml (16.4-293.9) H 10/22/16 05:35 Total Bilirubin 1.4 mg/dL (0.2-1.0) H D 10/22/16 05:35 Direct Bilirubin 0.7 mg/dL (0.0-0.2) H 10/22/16 05:35 AST 194 U/L (15-37) H D 10/22/16 05:35 ALT 86 U/L (12-78) H D 10/22/16 05:35 Alkaline Phosphatase 80 U/L (45-117) 10/22/16 05:35 LD Total 285 U/L (87-241) H 10/22/16 05:35 Creatine Kinase 137 IU/L (39-308) 10/22/16 05:35 Troponin I 3.66 ng/ml (0.00-0.05) H* D 10/22/16 05:35 C-Reactive Protein 9.9 MG/DL (0.00-0.3) H 10/22/16 05:35 B-Natriuretic Peptide 4708.53 pg/ml (5-450) H 10/20/16 13:17 Total Protein 6.4 g/dl (6.4-8.2) 10/22/16 05:35 Albumin 3.0 g/dl (3.4-5.0) L 10/22/16 05:35 Csrjv-2-Mruuqpgen (%) Cancelled 10/22/16 05:35 Jvoqj-3-Ugyngawcc (%) Cancelled 10/22/16 05:35 Beta Globulins (%) Cancelled 10/22/16 05:35 Gamma Globulins (%) Cancelled 10/22/16 05:35 M-Davon % Cancelled 10/22/16 05:35 TSH 1.05 uIU/ml (0.358-3.74) D 10/22/16 05:35 Free T4 0.99 ng/dl (0.76-1.16) 10/22/16 05:35 Urine Color Yellow 10/20/16 14:48 Urine Appearance Clear 10/20/16 14:48 Urine pH 6.0 (5.0-8.0) 10/20/16 14:48 Ur Specific Talmage 1.015 (1.005-1.025) 10/20/16 14:48 Urine Protein Negative (NEGATIVE) 10/20/16 14:48 Urine Glucose (UA) Negative (NEGATIVE) 10/20/16 14:48 Urine Ketones Negative (NEGATIVE) 10/20/16 14:48 Urine Blood 1+ (NEGATIVE) H 10/20/16 14:48 Urine Nitrite Negative (NEGATIVE) 10/20/16 14:48 Urine Bilirubin Negative (NEGATIVE) 10/20/16 14:48 Urine Urobilinogen 4.0 e.u/dl E.U./dl (0.2-1.0) 10/20/16 14:48 Ur Leukocyte Esterase Negative (NEGATIVE) 10/20/16 14:48 Urine RBC 17 /hpf (0-3) 10/20/16 14:48 Urine WBC 2 /hpf (3-5) 10/20/16 14:48 Stool Occult Blood Negative (NEGATIVE) 10/20/16 15:15 Rheumatoid Factor 85.0 IU/mL (0-15) H 10/22/16 05:35 Ref Test Comments Cancelled 10/22/16 05:35 Blood Type A POSITIVE 10/20/16 16:00 Antibody Screen Negative 10/20/16 13:17 Direct Antiglob Test Negative (NEGATIVE) 10/22/16 05:35 Crossmatch See Detail 10/22/16 05:35 ecg 10/20/16: afib, 112, nl qtc, no ischemic changes cxr: clear lungs tele: afib 120s echo 10/2016: lvh, mod-sev dec lvef, global hk, nl rv, mild lae, mod mr/tr, mild pr, rvsp 40-50, mild ao root dil, small pericardial eff a/p: 80 m hx htn, asthma, dementia, here with generalized weakness. new onset afib: -rvr at times so added toprol but bp too low to tolerate. appears to be septic with hypotension so would treat infection, give ivfs and monitor HR response. If HR not improving will consider dig (not ideal given chaka and amio not ideal given elevated lfts here). cont tele. -tsh wnl -chadsvasc score warrants ac but currently with severe anemia and thrombocytopenia so will not start at this time. 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 systolic chf, chronic: -echo here showing reduced lvef, unclear if new -currently no vol overload and will likely need continued ivfs due to sepsis -bp too low for bb, kirt at this time chaka: -cr worse today, likely related to sepsis, hypotension. cont abx, ivfs elevated lfts: -likely shock liver from sepsis/hypotension -cont to treat sepsis, monitor trend htn: -holding meds due to low bp currently elevated troponin: -initial trops negative but today has become mildly elevated. Possibly from septic shock vs acs (nstemi). -cont to trend CE's, check ecg -unable to give bb/kirt due to hypotension/chaka -unable to give statin 2/2 elevated lfts -unable to give asa/plavix/ac 2/2 severe anemia and thrombocytopenia -ischemic eval pending his clinical course pancytopenia, sepsis: -ID, heme following -has been getting prbcs
--- NOTE | 2016-10-22 12:54 | PN ---
Progress Note (short form) - Note Progress Note: Called to intubate this 80 year old male in cardiorespiratory arrest. upon arrival ACLS in progress. Pt. was intubated under direct laryngoscopy using #7.5 endotracheal tube. Position confirmed by + end-tidal CO2 and bilateral breath sounds. ACLS ongoing.
--- NOTE | 2016-10-22 13:11 | PN ---
Progress Note (short form) - Note Progress Note: Oncology follow-up nayeli S- Patient feels well when visited today, does not have any complaints or any pain. Last Vital Signs Temp Pulse Resp BP Pulse Ox 97.5 F L 122 H 20 96/58 97 10/22/16 09:00 10/22/16 09:00 10/22/16 09:00 10/22/16 09:00 10/22/16 09:00 Physical exam aoX3, perrla cta (bl) soft abdomen No c/c/e nonfocal neuro exam CBC, BMP 10/22/16 05:35 10/22/16 05:35 Current Medications Generic Name Dose Route Start Last Admin Trade Name Freq PRN Reason Stop Dose Admin Acetaminophen 650 mg 10/21/16 05:33 10/21/16 22:31 Tylenol - PO 650 mg Q6H PRN Administration FEVER OR PAIN Albuterol/Ipratropium 1 amp 10/21/16 01:58 Duoneb - NEB Q6H PRN SHORTNESS OF BREATH Heparin Sodium (Porcine) 5,000 unit 10/21/16 10:00 10/22/16 10:06 Heparin - SQ 5,000 unit BID [facility] Administration Dextrose/Sodium Chloride 1,000 mls @ 25 mls/hr 10/21/16 23:31 10/22/16 00:00 D5-1/2ns - IV 25 mls/hr ASDIR [facility] Administration Ceftriaxone Sodium 100 mls @ 200 mls/hr 10/22/16 10:00 10/22/16 10:05 Rocephin 2gm Ivpb (Pre-Docked) IVPB 200 mls/hr DAILY [facility] Administration Metoprolol Succinate 25 mg 10/22/16 09:53 Toprol Xl - PO BID [facility] Morphine Sulfate 2 mg 10/21/16 03:43 10/21/16 23:22 Morphine Injection - IVPUSH 2 mg Q6H PRN Administration PAIN Ondansetron HCl 4 mg 10/21/16 03:43 10/21/16 23:49 Zofran Injection IVPB 4 mg Q6H PRN Administration NAUSEA AND/OR VOMITING Pantoprazole Sodium 40 mg 10/21/16 10:00 10/22/16 10:05 Protonix - PO 40 mg DAILY [facility] Administration 80 y/o patient with htN, DEMENTIA, ARTHRITIS, Comes in with leg pains, worsening weakness, exertional dyspnea. Aslo with new onset afib. Pancytopenia: macrocytic anemia, thrombocytopenia, nl differentialof WBC awaiting B12/folate/fT4 TSH -mildly elevated check U/S to r/o liver disease awaiting myeloma labs awaiting flow cytometry results macrocytic anemia--r/o B12/folate deficiency/liver disease/MDS -transfusional support r/o hemolysis f/u cultures --r/o urinary infection coags wnl
[2016-10-22 13:31] VITALS: TEMP 97.7
[2016-10-22 13:46] VITALS: BP 126/89; PULSE 122
--- NOTE | 2016-10-22 15:06 | HOSP ---
Subjective - Review of Symptoms Events since last encounter: Code 99 initiated when patient acutely became non-responsive to nurse at bedside. ACLS protocol initiated with chest compressions. Full code sheet documentation placed in chart. Pt was intubated by anesthesiologist PEA on monitor, patient did not regain palpable or doppler femoral pulse. No spontanous breathing, no breath sounds b/l, no heart sounds, no dorsalis pedis, femoral or radial pulses bilaterally. pupils fixed and dilated. patient nonresponsive to verbal or tactile stimuli Patient pronounced at 12:59pm. Family, son-in-law, was outside the room and was notified. Questions answered and support provided, he wanted to call his daughter and other relatives himself. Dr. López called and notified. Physical Examination Vital Signs: Vital Signs Temperature 97.7 F 10/22/16 10:45 Pulse Rate 122 H 10/22/16 12:30 Respiratory Rate 26 H 10/22/16 12:30 Blood Pressure 126/89 10/22/16 12:30 O2 Sat by Pulse Oximetry (%) 97 10/22/16 09:00 Labs: CBC, BMP 10/22/16 05:35 10/22/16 05:35 Hospitalist Encounter Primary Physician Notified: Penny López (pt ) Time PMD Notified: 13:05
[2016-10-25 06:09] LABS: HEMATOCRIT 24.4 % (37.5-51.0)
[2016-10-26 00:07] LABS: A/G RATIO 1.1 (0.7-1.7); ALBUMIN 3.3 g/dL (2.9-4.4); GLOBULIN, TOTAL 2.9 g/dL (2.2-3.9); M-SPIKE Not Observed g/dL (Not Observed); TOTAL PROTEIN 6.2 g/dL (6.0-8.5)
== END 2016-10-22 19:25 | disposition expired | DRG 871 ==
LOC: JER 11:45 → JERBED 17:29 → J4W 10-21 02:52
PROVIDERS: ADMIT Internal Medicine; ATTEND Internal Medicine
PROC: 30233N1 Transfusion of Nonautologous Red Blood Cells into Peripheral Vein, Percutaneous Approach (ICD-10-PCS; 2016-10-20)
PROC: 0BH17EZ Insertion of Endotracheal Airway into Trachea, Via Natural or Artificial Opening (ICD-10-PCS; principal; 2016-10-22)
PROC: 5A1935Z Respiratory Ventilation, Less than 24 Consecutive Hours (ICD-10-PCS; 2016-10-22)
PROC: 5A12012 Performance of Cardiac Output, Single, Manual (ICD-10-PCS; 2016-10-22)
DX: A41.9 Sepsis, unspecified organism (principal); K72.00 Acute and subacute hepatic failure without coma; D61.818 Other pancytopenia; N17.9 Acute kidney failure, unspecified; I50.22 Chronic systolic (congestive) heart failure; J45.909 Unspecified asthma, uncomplicated; F03.90 Unspecified dementia, unspecified severity, without behavioral disturbance, psychotic disturbance, mood disturbance, and anxiety; M19.90 Unspecified osteoarthritis, unspecified site; D64.9 Anemia, unspecified; E78.00 Pure hypercholesterolemia, unspecified; I48.91 Unspecified atrial fibrillation; D69.6 Thrombocytopenia, unspecified; R50.9 Fever, unspecified; N41.9 Inflammatory disease of prostate, unspecified; D72.819 Decreased white blood cell count, unspecified; R79.89 Other specified abnormal findings of blood chemistry; I11.0 Hypertensive heart disease with heart failure
CPT/HCPCS: 36415; 36430; 36511; 71010-TC; 74176-TC; 80053; 81003; 81015; 82248; 82272; 82550; 82728; 82747; 82803; 83010; 83036; 83540; 83550; 83605; 83615; 83880; 83883; 84155; 84165; 84439; 84443; 84484; 85014; 85025; 85384; 85610; 85651; 85730; 86038; 86140; 86431; 86850; 86880; 86900; 86901; 86922; 87040; 87086; 93005; 93010; 93306-TC; 99285-25; J1644; P9038; P9058